=== PATIENT | female | born 1980 ===

== ENCOUNTER 2021-06-27 10:33 | Day surgery (SDC) | payer BC, OTHER ==
[2021-06-25 15:33] VITALS: BMI 26.2
[~2021-06-27 10:33] MED LIST: DEXAMETHASONE SOD PHOSPHATE 4 MG/ML 1 ML VIAL IV ONE; HYDROmorphone 0.5 MG/0.5 ML SYRINGE IVP PRN; LACTATED RINGERS 1,000 ML IV SCH; ONDANSETRON 4 MG/2 ML VIAL IVP ONE; Pre Op ABX Message 1 EACH MISC MISCELLANE ONE
--- NOTE | 2021-06-27 10:51 | P.HPOB ---
History of Present Illness H&P Date: 06/27/21 Chief Complaint: Pelvic pain: Hydrosalpinx Monica is a 41-year-old female who is been having pelvic pain. She initially thought that it might be her physical scopes were causing her pain and initially wanted her fallopian tubes includes removed. Ultrasound revealed a suspected hydrosalpinx and we are scheduled for a diagnostic laparoscopy and either drainage or removal of the hydrosalpinx. Initially she had wondered about removing both of her tubes. We have had multiple discussions including 1 with her on whether we should do this or not. She had initially wanted to have a tubal reversal and explained that I didn't do those that we would have to have her referred out to a specialist to does them and that if that was the case I didn't think she should have surgery with me as I could actually end of damaging the tubes were then what would potentially be repairable. At this time I believe she would like both of her tubes removed but we'll verify this in preop with nurse present to decide exactly what were going to do. If she wishes only to have the hydrosalpinx drained the now will be the plan if however she decides remove both her fallopian tubes because she is afraid that the pain is from this then we'll make every effort to follow her wishes. Risks/benefits/alternatives to surgery were discussed with patient in detail and did include but were not limited to bleeding and infection, damage to bladder or bowel past surgeries nerve injuries potentially ureteral injuries but eventually further surgery. On physical exam vital signs stable afebrile. Heart regular, lungs clear, extremities are without pain. Abdomen soft and bowel sounds are noted. Pelvic exam is otherwise unremarkable. She does have some tenderness but otherwise her pelvis is normal. Hydrosalpinx is not palpated Past Medical History Past Medical History: Asthma, Fibromyalgia, Hearing Disorder / Deafness Additional Past Medical History / Comment(s): Hard of hearing, right ear worse than left. History of Any Multi-Drug Resistant Organisms: None Reported Past Surgical History: Ear Surgery, Tubal Ligation Past Anesthesia/Blood Transfusion Reactions: Motion Sickness, Postoperative Nausea & Vomiting (PONV) Additional Past Anesthesia/Blood Transfusion Reaction / Comment(s): Slow to wake up. Past Psychological History: Anxiety Smoking Status: Former smoker, Vaper Past Alcohol Use History: None Reported Additional Past Alcohol Use History / Comment(s): Quit smoking 1 yr ago, now vapes occasionally. Past Drug Use History: None Reported - Past Family History Mother Family Medical History: Unable to Obtain Medications and Allergies Home Medications Medication Instructions Recorded Confirmed Type DULoxetine HCL [Cymbalta] 50 mg PO HS 06/25/21 06/25/21 History Pregabalin [Lyrica] 50 mg PO BID 06/25/21 06/25/21 History Allergies Allergy/AdvReac Type Severity Reaction Status Date / Time adhesive tape Allergy Rash/Hives Verified 06/25/21 15:35 amoxicillin AdvReac Yeast Verified 06/25/21 15:34 Infection Exam Osteopathic Statement: *. No significant issues noted on an osteopathic structural exam other than those noted in the History and Physical/Consult.
[2021-06-27] MEDS ORDERED: LACTATED RINGERS 1,000 ML IV ONE (11:24)
[2021-06-27] MEDS ORDERED: SCOPOLAMINE 1.5MG/72HR PATCH TRANSDERM ONE (11:25)
[2021-06-27] MEDS ORDERED: LIDOCAINE 1% INJ 10MG/ML (20 ML MDV) ONE (13:26)
[2021-06-27] MEDS ORDERED: fentaNYL (PF) 50 MCG/ML 2 ML AMP ONE (13:26)
[2021-06-27] MEDS ORDERED: KETOROLAC 15 MG/ML 1 ML VIAL ONE (13:26)
[2021-06-27] MEDS ORDERED: PROPOFOL 10 MG/ML 20 ML VIAL IV ONE (13:26)
[2021-06-27] MEDS ORDERED: NEOSTIGMINE 1 MG/ML 10 ML VIAL ONE (13:26)
[2021-06-27] MEDS ORDERED: GLYCOPYRROLATE 0.2 MG/ML 2 ML VIAL ONE (13:26)
[2021-06-27] MEDS ORDERED: SUCCINYLCHOLINE CHLORIDE 100 MG/5 ML SYR IV ONE (13:26)
[2021-06-27] MEDS ORDERED: ROCURONIUM 10 MG/ML (5 ML VIAL) IV ONE (13:26)
[2021-06-27] MEDS ORDERED: MIDAZOLAM 2 MG/2 ML VIAL ONE (13:26)
[2021-06-27] MEDS ORDERED: BUPIVACAINE (PF) 0.5% 30 ML VIAL SQ ONE (14:06)
--- NOTE | 2021-06-27 14:28 | P.OP ---
Date of Procedure: 06/27/21 Preoperative Diagnosis: Pelvic pain and hydrosalpinx Postoperative Diagnosis: Same Procedure(s) Performed: Diagnostic laparoscopy with bilateral salpingectomy Anesthesia: SHAILESH Surgeon: Guillermo Perdomo Estimated Blood Loss (ml): 5 IV fluids (ml): 400 Urine output (ml): 100 Pathology: other (Bilateral fallopian tubes) Condition: stable Disposition: same day Operative Findings: Right hydrosalpinx noted with minimal adhesions. Filshie clips are noted within the omentum but freely mobile Description of Procedure: Patient was taken to the operating suite where general anesthetic was found be adequate she was prepped and draped in normal sterile fashion and placed in the dorsal lithotomy position. Initially a speculum inserted in the vagina and Ivon posterior identified and grasped with an Allis clamp. Uterus was then sounded to 8 cm and cervix was dilated. Uterine manipulator was then inserted without difficulty and other instruments removed. Red rubber cath was then used to drain the bladder of urine. Gloves were changed and attention was turned to abdominal portion procedure where 2 mL of quarter percent Marcaine was injected periumbilically. Through this injected anesthetic a 5 mm skin incision was made and through this incision, under direct visualization, the camera was inserted. Once peritoneal placement was assured gas was allowed to fully insufflate the abdomen and patient was placed in steep Trendelenburg position. A second 5 mm skin incision was then made 3 cm above the pubic symphysis in the midline and then under direct visualized moving the camera to the suprapubic port the 10 mm skin incision was made and a port and sleeve were inserted again under direct visualization. Observations pelvis were noted. There was a hydrosalpinx was noted and was attached to the omentum Elysia were noted really just together within the omentum but the omentum piece was freely mobile and not attached to bowel or pelvic sidewall. Therefore ovary was evaluated in normal fallopian tube/hydrosalpinx was then elevated and using a LigaSure it was cauterized and transected. Once this was completed the left fallopian tube was also trans- resected and cauterized with the LigaSure and both of these were placed in a gallbladder bag and were removed from the operative field. Hemostasis is noted across all pedicles therefore instruments were removed gas allowed to expel from the abdomen. 5 deep breaths were provided during this process. 4-0 Vicryl using used to close incision subcuticularly and the incident was removed from the vagina. Sponge, lap, needle counts were all correct 2. Patient was then taken to the recovery room in stable and satisfactory condition. Plan - Discharge Summary Discharge Rx Participant: Yes New Discharge Prescriptions: New Ibuprofen [Motrin] 600 mg PO Q6HR PRN #30 tab PRN Reason: Pain oxyCODONE HCL/ACETAMINOPHEN [Percocet 5-325 mg] 1 tab PO Q4HR PRN 3 Days #18 tab PRN Reason: Pain No Action DULoxetine HCL [Cymbalta] 50 mg PO HS Pregabalin [Lyrica] 50 mg PO BID Discharge Medication List DULoxetine HCL [Cymbalta] 50 mg PO HS 06/25/21 [History] Pregabalin [Lyrica] 50 mg PO BID 06/25/21 [History] Ibuprofen [Motrin] 600 mg PO Q6HR PRN #30 tab 06/27/21 [Rx] oxyCODONE HCL/ACETAMINOPHEN [Percocet 5-325 mg] 1 tab PO Q4HR PRN 3 Days #18 tab 06/27/21 [Rx] Follow up Appointment(s)/Referral(s): Guillermo Perdomo DO [Doctor of Osteopathic Medicine] - 1 Week Patient Instructions/Handouts: *Surgery [facility] - Scopalamine Patch Instructions Discharge Disposition: HOME SELF-CARE
[2021-06-27 14:45] VITALS: TEMP 97.8
[2021-06-27 14:55] VITALS: RESP 16
[2021-06-27] MEDS ORDERED: ONDANSETRON 4 MG/2 ML VIAL ONE (15:22)
[2021-06-27] MEDS ORDERED: ONDANSETRON 4 MG/2 ML VIAL IVP ONE (15:23)
[2021-06-27] MEDS ORDERED: oxyCODONE-APAP 5-325MG 1 EACH TAB ONE (15:58)
[2021-06-27] MEDS ORDERED: oxyCODONE-APAP 5-325MG 1 EACH TAB PO ONE (16:00)
[2021-06-27 16:22] VITALS: BP 117/76; PULSE 61
== END 2021-06-27 16:41 | disposition home or self-care (01) ==
LOC: OR 10:33
PROVIDERS: ATTEND Obstetrics & Gynecology
DX: N70.11 Chronic salpingitis (principal); J45.909 Unspecified asthma, uncomplicated; M79.7 Fibromyalgia; H91.90 Unspecified hearing loss, unspecified ear; F41.9 Anxiety disorder, unspecified; F17.290 Nicotine dependence, other tobacco product, uncomplicated; Z98.51 Tubal ligation status; Z79.899 Other long term (current) drug therapy; Z88.0 Allergy status to penicillin; Z91.09 Other allergy status, other than to drugs and biological substances
CPT/HCPCS: 81025; 88305; 58661; J2250; J1100; J2710; J2405; J2001; J3010; J1885; J0330; J2704; J1170

== ENCOUNTER → 2021-09-03 | Outpatient (CLI) | payer BC, OTHER ==
[2021-09-03 21:24] LABS: African American GFR (CKD) 114.5 (60.0-200.0); Albumin 4.6 g/dL (3.8-4.9); Albumin/Globulin Ratio 1.71 (1.60-3.17); Anion Gap 13.7 mmol/L (10.00-18.00); BUN/Creat Ratio 15.13 Ratio (12.00-20.00); Blood Urea Nitrogen 11.5 mg/dL (9.0-27.0); Calcium 9.2 mg/dL (8.7-10.3); Globulin 2.7 g/dL (1.6-3.3); Magnesium 2.2 mg/dL (1.5-2.4); Non-African American GFR(CKD) 98.8 (60.0-200.0); Potassium 3.7 mmol/L (3.5-5.5); Total Bilirubin 0.4 mg/dL (0.30-1.20); Total Protein 7.3 g/dL (6.2-8.2)
== END | disposition home or self-care (01) ==
LOC: LABWHC1 12:09
PROVIDERS: ATTEND Internal Medicine
DX: G47.62 Sleep related leg cramps (principal)
CPT/HCPCS: 36415; 80053; 83735

== ENCOUNTER → 2021-10-03 | Outpatient (CLI) | payer BC, OTHER ==
[2021-10-03 14:59] LABS: Basophils # (A) 0.02 X 10*3/uL (0.00-0.10); Basophils % (A) 0.3 %; Eosinophils # (A) 0.07 X 10*3/uL (0.04-0.35); Eosinophils % (A) 0.9 %; HCT 42.2 % (37.2-46.3); HGB 13.4 g/dL (12.0-15.0); MCH 29.8 pg (27.0-32.0); MCHC 31.8 g/dL (32.0-37.0); Mean Platelet Volume 9.8 fL (9.5-12.2); Monocytes # (A) 0.56 X 10*3/uL (0.20-1.00); Monocytes % (A) 7.6 %; Neutrophils # (A) 5.03 X 10*3/uL (1.80-7.70); Neutrophils % (A) 67.9 %; Platelet Count 270 X 10*3/uL (140-440); RBC 4.49 X 10*6/uL (4.10-5.20); RDW 12.3 % (11.5-14.5)
[2021-10-03 16:20] LABS: African American GFR (CKD) 126.5 (60.0-200.0); Albumin 4.3 g/dL (3.8-4.9); Albumin/Globulin Ratio 1.65 (1.60-3.17); Anion Gap 13.5 mmol/L (10.00-18.00); BUN/Creat Ratio 16.71 Ratio (12.00-20.00); Blood Urea Nitrogen 11.7 mg/dL (9.0-27.0); Calcium 8.9 mg/dL (8.7-10.3); Carbon Dioxide 21.5 mmol/L (20.0-27.5); Globulin 2.6 g/dL (1.6-3.3); Non-African American GFR(CKD) 109.1 (60.0-200.0); Potassium 4.1 mmol/L (3.5-5.5); T4, Free (Free Thyroxine) 1.58 ng/dL (0.800-1.800); Total Bilirubin 0.3 mg/dL (0.30-1.20); Total Protein 6.9 g/dL (6.2-8.2)
== END | disposition home or self-care (01) ==
LOC: LABWHC1 08:42
PROVIDERS: ATTEND Nurse Practitioner Acute Care
DX: M35.3 Polymyalgia rheumatica (principal); R20.2 Paresthesia of skin; E55.9 Vitamin D deficiency, unspecified; E53.9 Vitamin B deficiency, unspecified; R42 Dizziness and giddiness; H53.8 Other visual disturbances; G43.909 Migraine, unspecified, not intractable, without status migrainosus
CPT/HCPCS: 36415; 80053; 82306; 82607; 84207; 84439; 84443; 84481; 85025

== ENCOUNTER 2021-10-05 18:54 | Emergency (ER) | payer BC, OTHER ==
[2021-10-05 18:57] VITALS: RESP 18; TEMP 98.2
[2021-10-05] MEDS ORDERED: KETOROLAC 15 MG/ML 1 ML VIAL IVP STA (19:10)
[2021-10-05] MEDS ORDERED: SODIUM CHLORIDE 0.9% 1,000 ML IV STA (19:10)
[2021-10-05] MEDS ORDERED: SODIUM CHLORIDE 0.9% 500 ML 500 ML IV STA (19:10)
--- NOTE | 2021-10-05 19:13 | ED ---
Abdominal Pain HPI - General Chief Complaint: Abdominal Pain Stated Complaint: Flank Pain Time Seen by Provider: 10/05/21 18:59 Source: patient, family, EMS, RN notes reviewed Mode of arrival: EMS Limitations: no limitations - History of Present Illness Initial Comments: 40-year-old female with a history of MS also history of tubal ligation past history of fibromyalgia and hypertension who states she had the onset yesterday of left-sided flank pain fairly constant in nature 910/10 in severity increases with movements and deep breathing. She denies any cough fevers chills she has had sweats with the pain. No dysuria no hematuria no history of kidney stones. Patient does states she feels bloated. No other complaints or modifying factors. MD Complaint: flank pain - Related Data Home Medications Medication Instructions Recorded Confirmed DULoxetine HCL [Cymbalta] 50 mg PO HS 06/25/21 06/25/21 Pregabalin [Lyrica] 50 mg PO BID 06/25/21 06/25/21 Previous Rx's Medication Instructions Recorded Ibuprofen [Motrin] 600 mg PO Q6HR PRN #30 tab 06/27/21 oxyCODONE HCL/ACETAMINOPHEN 1 tab PO Q4HR PRN 3 Days #18 tab 06/27/21 [Percocet 5-325 mg] Cephalexin [Keflex] 500 mg PO Q6HR 1 Days #40 cap 10/05/21 Fluconazole [Diflucan] 150 mg PO ONCE #1 tab 10/05/21 Ibuprofen 800 mg PO Q6HR PRN #20 tablet 10/05/21 Allergies Allergy/AdvReac Type Severity Reaction Status Date / Time adhesive tape Allergy Rash/Hives Verified 10/05/21 18:56 amoxicillin AdvReac Yeast Verified 10/05/21 18:56 Infection Review of Systems ROS Statement: Those systems with pertinent positive or pertinent negative responses have been documented in the HPI. ROS Other: All systems not noted in ROS Statement are negative. Past Medical History Past Medical History: Asthma, Fibromyalgia, Hearing Disorder / Deafness Additional Past Medical History / Comment(s): Hard of hearing, right ear worse than left. History of Any Multi-Drug Resistant Organisms: None Reported Past Surgical History: Ear Surgery, Tubal Ligation Past Anesthesia/Blood Transfusion Reactions: Motion Sickness, Postoperative Nausea & Vomiting (PONV) Additional Past Anesthesia/Blood Transfusion Reaction / Comment(s): Slow to wake up. Past Psychological History: Anxiety Smoking Status: Former smoker, Vaper Past Alcohol Use History: None Reported Past Drug Use History: None Reported - Past Family History Mother Family Medical History: Unable to Obtain General Exam - General Exam Comments Initial Comments: This is a well-developed well-nourished awake alert oriented 3 female Limitations: no limitations General appearance: alert, anxious, in distress Head exam: Present: atraumatic, normocephalic, normal inspection Eye exam: Present: normal appearance, PERRL, EOMI. Absent: scleral icterus, c onjunctival injection, periorbital swelling ENT exam: Present: normal exam, mucous membranes moist Neck exam: Present: normal inspection, full ROM, other. Absent: tenderness, meningismus, lymphadenopathy Respiratory exam: Present: normal lung sounds bilaterally. Absent: respiratory distress, wheezes, rales, rhonchi, stridor Cardiovascular Exam: Present: regular rate, normal rhythm, normal heart sounds. Absent: systolic murmur, diastolic murmur, rubs, gallop, clicks GI/Abdominal exam: Present: soft, tenderness (Left flank tenderness), normal bowel sounds. Absent: distended, guarding, rebound, rigid Extremities exam: Present: normal inspection, full ROM, normal capillary refill. Absent: tenderness, pedal edema, joint swelling, calf tenderness Back exam: Present: normal inspection, CVA tenderness (L) Neurological exam: Present: alert, oriented X3, CN II-XII intact Psychiatric exam: Present: normal affect, normal mood Skin exam: Present: warm, dry, intact, normal color. Absent: rash Course Vital Signs 10/05/21 18:56 Temperature 98.2 F Pulse Rate 108 H Respiratory 18 Rate Blood Pressure 124/81 O2 Sat by Pulse 98 Oximetry - Reevaluation(s) Reevaluation #1: 10/05/21 20:28 Patient states she did get some relief from the Toradol given she still has pain is 5/10 when she tries to move. Medical Decision Making - Medical Decision Making I did discuss the findings with the patient family patient does have evidence of urinary tract infection patient will be given IV antibiotics as well as Diflucan if she does have problems with antibiotics and yeast infections. This is what the amoxicillin is listed as a adverse reaction 4. She will be given prescriptions after IV medication she is in agreement with this. She is a follow-up with her doctor return when necessary - Lab Data Result diagrams: 10/05/21 19:27 10/05/21 19:27 Lab Results 10/05/21 10/05/21 10/05/21 Range/Units 19:27 19: 19: WBC 10.9 H (3.8-10.6) k/uL RBC 4.23 (3.80-5.40) m/uL Hgb 13.2 (11.4-16.0) gm/dL Hct 39.4 (34.0-46.0) % MCV 93.1 (80.0-100.0) fL MCH 31.3 (25.0-35.0) pg MCHC 33.6 (31.0-37.0) g/dL RDW 12.1 (11.5-15.5) % Plt Count 238 (150-450) k/uL MPV 6.8 Neutrophils % 78 % Lymphocytes % 14 % Monocytes % 6 % Eosinophils % 1 % Basophils % 0 % Neutrophils # 8.5 H (1.3-7.7) k/uL Lymphocytes # 1.6 (1.0-4.8) k/uL Monocytes # 0.6 (0-1.0) k/uL Eosinophils # 0.1 (0-0.7) k/uL Basophils # 0.0 (0-0.2) k/uL Sodium (137-145) mmol/L Potassium (3.5-5.1) mmol/L Chloride (98-107) mmol/L Carbon Dioxide (22-30) mmol/L Anion Gap mmol/L BUN (7-17) mg/dL Creatinine (0.52-1.04) mg/dL Est GFR (CKD-EPI)AfAm (>60 ml/min/1.73 sqM) Est GFR (CKD-EPI)NonAf (>60 ml/min/1.73 sqM) Glucose (74-99) mg/dL Calcium (8.4-10.2) mg/dL Total Bilirubin (0.2-1.3) mg/dL AST (14-36) U/L ALT (4-34) U/L Alkaline Phosphatase (38-126) U/L Total Protein (6.3-8.2) g/dL Albumin (3.5-5.0) g/dL Amylase (30-110) U/L Lipase (23-300) U/L Urine Color Light Yellow Urine Appearance Cloudy H (Clear) Urine pH 5.5 (5.0-8.0) Ur Specific [place] 1.006 (1.001-1.035) Urine Protein Negative (Negative) Urine Glucose (UA) Negative (Negative) Urine Ketones Negative (Negative) Urine Blood Large H (Negative) Urine Nitrite Positive H (Negative) Urine Bilirubin Negative (Negative) Urine Urobilinogen <2.0 (<2.0) mg/dL Ur Leukocyte Esterase Moderate H (Negative) Urine RBC 3 (0-5) /hpf Urine WBC 8 H (0-5) /hpf Ur Squamous Epith Cells 10 H (0-4) /hpf Amorphous Sediment Occasional H (None) /hpf Urine Bacteria Occasional H (None) /hpf Urine Mucus Rare H (None) /hpf Urine HCG, Qual Not Detected (Not Detectd) 10/05/21 Range/Units 19:27 WBC (3.8-10.6) k/uL RBC (3.80-5.40) m/uL Hgb (11.4-16.0) gm/dL Hct (34.0-46.0) % MCV (80.0-100.0) fL MCH (25.0-35.0) pg MCHC (31.0-37.0) g/dL RDW (11.5-15.5) % Plt Count (150-450) k/uL MPV Neutrophils % % Lymphocytes % % Monocytes % % Eosinophils % % Basophils % % Neutrophils # (1.3-7.7) k/uL Lymphocytes # (1.0-4.8) k/uL Monocytes # (0-1.0) k/uL Eosinophils # (0-0.7) k/uL Basophils # (0-0.2) k/uL Sodium 137 (137-145) mmol/L Potassium 4.0 (3.5-5.1) mmol/L Chloride 102 (98-107) mmol/L Carbon Dioxide 21 L (22-30) mmol/L Anion Gap 14 mmol/L BUN 19 H (7-17) mg/dL Creatinine 0.88 (0.52-1.04) mg/dL Est GFR (CKD-EPI)AfAm >90 (>60 ml/min/1.73 sqM) Est GFR (CKD-EPI)NonAf 84 (>60 ml/min/1.73 sqM) Glucose 86 (74-99) mg/dL Calcium 9.0 (8.4-10.2) mg/dL Total Bilirubin 0.7 (0.2-1.3) mg/dL AST 26 (14-36) U/L ALT 24 (4-34) U/L Alkaline Phosphatase 76 (38-126) U/L Total Protein 7.1 (6.3-8.2) g/dL Albumin 4.0 (3.5-5.0) g/dL Amylase 39 (30-110) U/L Lipase 49 (23-300) U/L Urine Color Urine Appearance (Clear) Urine pH (5.0-8.0) Ur Specific [place] (1.001-1.035) Urine Protein (Negative) Urine Glucose (UA) (Negative) Urine Ketones (Negative) Urine Blood (Negative) Urine Nitrite (Negative) Urine Bilirubin (Negative) Urine Urobilinogen (<2.0) mg/dL Ur Leukocyte Esterase (Negative) Urine RBC (0-5) /hpf Urine WBC (0-5) /hpf Ur Squamous Epith Cells (0-4) /hpf Amorphous Sediment (None) /hpf Urine Bacteria (None) /hpf Urine Mucus (None) /hpf Urine HCG, Qual (Not Detectd) - Radiology Data Radiology results: report reviewed (Imaging reviewed no acute findings), image reviewed Disposition Clinical Impression: Left flank pain, Urinary tract infection Disposition: HOME SELF-CARE Condition: Good Instructions (If sedation given, give patient instructions): Urinary Tract Infection in Women (ED), Flank Pain (ED), Renal Colic (ED) Prescriptions: Fluconazole [Diflucan] 150 mg PO ONCE #1 tab Ibuprofen 800 mg PO Q6HR PRN #20 tablet PRN Reason: Pain Cephalexin [Keflex] 500 mg PO Q6HR 1 Days #40 cap Is patient prescribed a controlled substance at d/c from ED?: No Referrals: Channing Bright MD [Primary Care Provider] - 1-2 days
[2021-10-05 19:41] LABS: Basophils % (A) 0 %; Eosinophils # (A) 0.1 k/uL (0-0.7); Eosinophils % (A) 1 %; HCT 39.4 % (34.0-46.0); HGB 13.2 gm/dL (11.4-16.0); Lymphocytes # (A) 1.6 k/uL (1.0-4.8); Lymphocytes % (A) 14 %; MCH 31.3 pg (25.0-35.0); MCHC 33.6 g/dL (31.0-37.0); MCV 93.1 fL (80.0-100.0); Mean Platelet Volume 6.8; Monocytes # (A) 0.6 k/uL (0-1.0); Monocytes % (A) 6 %; Neutrophils # (A) 8.5 k/uL (1.3-7.7); Neutrophils % (A) 78 %; Platelet Count 238 k/uL (150-450); RBC 4.23 m/uL (3.80-5.40); RDW 12.1 % (11.5-15.5); WBC 10.9 k/uL (3.8-10.6)
[2021-10-05 19:54] LABS: Amorphous Sediment,Urine Occasional /hpf; Appearance,Urine Cloudy (Clear); Bacteria,Urine Occasional /hpf; Bilirubin,Urine Negative (Negative); Blood,Urine Large (Negative); Color,Urine Light Yellow; Glucose,Urine (UA) Negative (Negative); Ketones,Urine Negative (Negative); Leukocyte Esterase,Urine Moderate (Negative); Mucus,Urine Rare /hpf; Nitrite,Urine Positive (Negative); PH, Urine 5.5 (5.0-8.0); Protein,Urine Negative (Negative); RBC,Urine 3 /hpf (0-5); Specific Gravity,Urine 1.006 (1.001-1.035); Squamous Epithelial Cell,Urine 10 /hpf (0-4); Urobilinogen,Urine <2.0 mg/dL (<2.0); WBC,Urine 8 /hpf (0-5)
[2021-10-05 19:56] LABS: ALT 24 U/L (4-34); AST 26 U/L (14-36); African American GFR (CKD) >90 (>60 ml/min/1.73 sqM); Alkaline Phosphatase 76 U/L (38-126); Amylase 39 U/L (30-110); Anion Gap 14 mmol/L; Blood Urea Nitrogen 19 mg/dL (7-17); Carbon Dioxide 21 mmol/L (22-30); Chloride 102 mmol/L (98-107); Glucose 86 mg/dL (74-99); Lipase 49 U/L (23-300); Non-African American GFR(CKD) 84 (>60 ml/min/1.73 sqM); Sodium 137 mmol/L (137-145); Total Bilirubin 0.7 mg/dL (0.2-1.3); Total Protein 7.1 g/dL (6.3-8.2)
--- NOTE | 2021-10-05 20:07 | XR ---
EXAMINATION TYPE: XR KUB DATE OF EXAM: 10/05/2021 COMPARISON: 02/24/2011 HISTORY: Abdominal pain TECHNIQUE: 2 views upright FINDINGS: There is no sign of intestinal obstruction or pneumoperitoneum. Fecal pattern is normal. Th ere are clips in the pelvis. There are no calcifications over the kidneys. Lung bases are clear. IMPRESSION: Nonacute abdomen. No adverse change. There is clearing of the large bowel fluid levels co mpared to old exam.
[2021-10-05] MEDS ORDERED: cefTRIAXone IN SWFI 1,000 MG/10 ML SYRINGE IVP STA (20:26)
[2021-10-05] MEDS ORDERED: FLUCONAZOLE 150 MG TAB PO STA (20:26)
[2021-10-05] MEDS ORDERED: HYDROmorphone 1 MG/ML 1 ML SYRINGE IVP STA (20:27)
[2021-10-05 21:07] VITALS: BP 134/85; PULSE 107
== END 2021-10-05 21:07 | disposition home or self-care (01) ==
LOC: EC 18:54
DX: N39.0 Urinary tract infection, site not specified (principal); Z91.048 Other nonmedicinal substance allergy status; Z88.0 Allergy status to penicillin; J45.909 Unspecified asthma, uncomplicated; H91.93 Unspecified hearing loss, bilateral; F17.200 Nicotine dependence, unspecified, uncomplicated
CPT/HCPCS: 36415; 80053; 82150; 83690; 85025; 81001; 81025; 74018; 99284; 96374; 96375; J0696; J1170; J1885

== ENCOUNTER 2021-11-19 20:06 | Emergency (ER) | payer BC, OTHER ==
--- NOTE | 2021-11-19 20:33 | ED ---
General Adult HPI <Karl Waterman - Last Filed: 11/20/21 00:03> <TimPorfirio César - Last Filed: 11/21/21 12:06> - General Stated complaint: Dizziness Time Seen by Provider: 11/19/21 20:09 - History of Present Illness Initial comments: Dictation was produced using [employer] dictation software. please excuse any grammatical, word or spelling errors. Chief Complaint: Patient is 41-year-old female past medical history of fibro myalgia, asthma and hearing disorder since to the ER for lethargy and altered mental status History of Present Illness: 41-year-old female patient revised history of present illness. According to nurse will receive report from EMS EMS was called for lethargy altered mental status. Patient is sleepy at the bedside however she is arousable. She provides rest of the HPI. Patient states that she was having trouble sleeping at home. She states she was tossing and turning. She called EMS because she is having lower leg pain. Patient has history of restless leg syndrome. Patient denies any pain complaints otherwise. No shortness breath nausea vomiting. The ROS documented in this emergency department record has been reviewed and confirmed by me. Those systems with pertinent positive or negative responses have been documented in the HPI. All other systems are other negative and/or n oncontributory. PHYSICAL EXAM: General Impression: Alert and oriented x3, not in acute distress, sleepy but arousable HEENT: Normocephalic atraumatic, extra-ocular movements intact, pupils equal and reactive to light bilaterally, mucous membranes moist. Cardiovascular: Heart regular rate and rhythm Chest: Able to complete full sentences, no retractions, no tachypnea Abdomen: abdomen soft, non-tender, non-distended, no organomegaly Musculoskeletal: Pulses present and equal in all extremities, no peripheral edema Motor: no focal deficits noted Neurological: CN II-XII grossly intact, no focal motor or sensory deficits noted Skin: Intact with no visualized rashes Psych: Normal affect and mood ED course: 41-year-old female presents via EMS. According to EMS chief complaint was for lethargy and altered mental status. Patient reports that she is here for a lateral lower extremity pain. Signs upon arrival are within acceptable limits. She is sleepy at the bedside however she is arousable and is coherent and alert and oriented 4. Patient care sent out to Dr. Waterman pending sobriety. Patient reevaluated bedside at 10:50 PM found to be in stable medical condition. Patient sleeping comfortably. She is not showing signs of respiratory or pain distress. Vital signs are stable. Maps report was obtained. Patient has a overdose risk or of 310. Patient has been prescribed lorazepam, pregabalin, phentermine, Percocet. Patient is sleepy but arousable. Suspect patient did benzodiazepines prior to coming to the emergency department. She does not have any pinpoint pupils. She does not have a low respiratory rate. Highly doubt opiate overdose. Laboratory evaluation obtained. CBC, metabolic panel, tox labs are negative. EKG interpretation: Ventricular rate 75, sinus rhythm,. 156, QS 91, QTC 428. No IN prolongation, no QTC prolongation, no ST or T-wave changes noted. EKG compared to 10/23/2021 showing no changes. Overall, this EKG is unremarkable (Porfirio Dumont) - Related Data Home Medications Medication Instructions Recorded Confirmed DULoxetine HCL [Cymbalta] 20 mg PO DAILY 06/25/21 11/19/21 Pregabalin [Lyrica] 50 mg PO BID@0600,2200 06/25/21 11/19/21 Diclofenac Sodium [Voltaren] 50 mg PO BID-W/MEALS 11/19/21 11/19/21 Ergocalciferol (Vitamin D2) 1,250 mcg PO TU 11/19/21 11/19/21 [Drisdol (50,000 Iu)] Ondansetron Odt [Zofran Odt] 4 mg PO BID PRN 11/19/21 11/19/21 Rimegepant Sulfate [Nurtec Odt] 75 mg PO DAILY PRN 11/19/21 11/19/21 lisinopriL [Zestril] 5 mg PO DAILY 11/19/21 11/19/21 rOPINIRole HCL [Requip] 1 mg PO HS 11/19/21 11/19/21 tiZANidine HCL 4 mg PO TID@0600,1200,2200 11/19/21 11/19/21 Allergies Allergy/AdvReac Type Severity Reaction Status Date / Time adhesive tape Allergy Rash/Hives Verified 11/19/21 21:29 amoxicillin AdvReac Yeast Verified 11/19/21 21:29 Infection Review of Systems ROS Other: All systems not noted in ROS Statement are negative. <Karl Waterman - Last Filed: 11/20/21 00:03> ROS Other: All systems not noted in ROS Statement are negative. <Porfirio Dumont - Last Filed: 11/21/21 12:06> ROS Statement: Those systems with pertinent positive or pertinent negative responses have been documented in the HPI. Past Medical History Past Medical History: Asthma, Fibromyalgia, Hearing Disorder / Deafness Additional Past Medical History / Comment(s): Hard of hearing, right ear worse than left. History of Any Multi-Drug Resistant Organisms: None Reported Past Surgical History: Ear Surgery, Tubal Ligation Past Anesthesia/Blood Transfusion Reactions: Motion Sickness, Postoperative Nausea & Vomiting (PONV) Additional Past Anesthesia/Blood Transfusion Reaction / Comment(s): Slow to wake up. Past Psychological History: Anxiety Smoking Status: Former smoker, Vaper Past Alcohol Use History: None Reported Past Drug Use History: None Reported - Past Family History Mother Family Medical History: Unable to Obtain <Porfirio Dumont - Last Filed: 11/21/21 12:06> Course Vital Signs 11/19/21 20:35 Temperature 97.6 F Pulse Rate 83 Respiratory 18 Rate Blood Pressure 91/58 O2 Sat by Pulse 97 Oximetry Medical Decision Making - Lab Data Result diagrams: 11/19/21 21:56 11/19/21 21:56 <Karl Waterman - Last Filed: 11/20/21 00:03> - Lab Data Result diagrams: 11/19/21 21:56 11/19/21 21:56 <Porfirio Dumont - Last Filed: 11/21/21 12:06> - Lab Data Lab Results 11/19/21 11/19/21 Range/Units 21:56 21:56 WBC 13.2 H (3.8-10.6) k/uL RBC 4.05 (3.80-5.40) m/uL Hgb 13.0 (11.4-16.0) gm/dL Hct 38.0 (34.0-46.0) % MCV 93.8 (80.0-100.0) fL MCH 32.2 (25.0-35.0) pg MCHC 34.3 (31.0-37.0) g/dL RDW 13.2 (11.5-15.5) % Plt Count 277 (150-450) k/uL MPV 7.0 Neutrophils % 82 % Lymphocytes % 12 % Monocytes % 4 % Eosinophils % 1 % Basophils % 0 % Neutrophils # 10.8 H (1.3-7.7) k/uL Lymphocytes # 1.6 (1.0-4.8) k/uL Monocytes # 0.6 (0-1.0) k/uL Eosinophils # 0.1 (0-0.7) k/uL Basophils # 0.0 (0-0.2) k/uL Sodium 134 L (137-145) mmol/L Potassium 3.9 (3.5-5.1) mmol/L Chloride 105 (98-107) mmol/L Carbon Dioxide 21 L (22-30) mmol/L Anion Gap 8 mmol/L BUN 12 (7-17) mg/dL Creatinine 0.86 (0.52-1.04) mg/dL Est GFR (CKD-EPI)AfAm >90 (>60 ml/min/1.73 sqM) Est GFR (CKD-EPI)NonAf 86 (>60 ml/min/1.73 sqM) Glucose 117 H (74-99) mg/dL Calcium 8.6 (8.4-10.2) mg/dL Salicylates <1.0 mg/dL Acetaminophen <10.0 ug/mL Serum Alcohol <10 mg/dL Disposition Is patient prescribed a controlled substance at d/c from ED?: No <Karl Watreman - Last Filed: 11/20/21 00:03> <Porfirio Dumont - Last Filed: 11/21/21 12:06> Clinical Impression: Medication side effects Disposition: HOME SELF-CARE Condition: Good Instructions (If sedation given, give patient instructions): Dizziness (ED) Referrals: Channing Bright MD [Primary Care Provider] - 1-2 days
[2021-11-19 20:42] VITALS: BP 91/58; PULSE 83; RESP 18; TEMP 97.6
[2021-11-19 22:22] LABS: Basophils % (A) 0 %; Eosinophils # (A) 0.1 k/uL (0-0.7); Eosinophils % (A) 1 %; Lymphocytes # (A) 1.6 k/uL (1.0-4.8); Lymphocytes % (A) 12 %; MCH 32.2 pg (25.0-35.0); MCHC 34.3 g/dL (31.0-37.0); MCV 93.8 fL (80.0-100.0); Monocytes # (A) 0.6 k/uL (0-1.0); Monocytes % (A) 4 %; Neutrophils # (A) 10.8 k/uL (1.3-7.7); Neutrophils % (A) 82 %; Platelet Count 277 k/uL (150-450); RBC 4.05 m/uL (3.80-5.40); RDW 13.2 % (11.5-15.5); WBC 13.2 k/uL (3.8-10.6)
[2021-11-19 22:51] LABS: Acetaminophen <10.0 ug/mL; African American GFR (CKD) >90 (>60 ml/min/1.73 sqM); Alcohol <10 mg/dL; Anion Gap 8 mmol/L; Blood Urea Nitrogen 12 mg/dL (7-17); Calcium 8.6 mg/dL (8.4-10.2); Carbon Dioxide 21 mmol/L (22-30); Chloride 105 mmol/L (98-107); Glucose 117 mg/dL (74-99); Non-African American GFR(CKD) 86 (>60 ml/min/1.73 sqM); Potassium 3.9 mmol/L (3.5-5.1); Salicylate <1.0 mg/dL; Sodium 134 mmol/L (137-145)
== END 2021-11-20 00:26 | disposition home or self-care (01) ==
LOC: EC 20:06
DX: T88.7XXA Unspecified adverse effect of drug or medicament, initial encounter (principal); Z87.891 Personal history of nicotine dependence; Z88.0 Allergy status to penicillin; Z91.048 Other nonmedicinal substance allergy status
CPT/HCPCS: 36415; 80048; 80143; 80179; 80320; 85025; 93005; 99285

== ENCOUNTER → 2021-11-19 | Outpatient (CLI) | payer BC, OTHER ==
[2021-11-19 18:30] LABS: Total Protein,CSF 48 mg/dL (12-60)
[2021-11-19 21:22] LABS: Appearance,CSF Clear; CSF Tube Number 4; CSF Tube Volume 3; Red Blood Cell,CSF 0 u/L (0-10)
[2021-11-19 21:23] LABS: Nucleated Cells, CSF 0 u/L (0-5)
== END | disposition home or self-care (01) ==
LOC: LABWHC1 08:24
PROVIDERS: ATTEND Nurse Practitioner Acute Care
DX: G35 Multiple sclerosis (principal); R42 Dizziness and giddiness
CPT/HCPCS: 36415; 82040; 82042; 82784; 83916; 84157; 87801; 89050

== ENCOUNTER → 2022-04-23 | Outpatient (CLI) | payer OTHER ==
--- NOTE | 2022-04-24 08:06 | NM ---
EXAMINATION TYPE: NM DatScan Brain SPECT DATE OF EXAM: 04/23/2022 COMPARISON: No CT or MRI correlation available HISTORY: 42-year-old female R2 5.8, bradykinesia. Frequent falls. TECHNIQUE: 10 drops of Lugol's solution was administered 1 hour prior to injection as a thyroid bloc mere agent. After the administration of 4.63 mCi I-123 Ioflupane DaTscan. Images obtained 3 hours p ost injection. SPECT images of the brain were acquired with axial and coronal reconstructions. FINDINGS: There is normal background activity. Satisfactory, symmetric activity in the bilateral corpus striata . IMPRESSION: This normal appearance is against a diagnosis of idiopathic Parkinson's disease or a parkinsonian syn drome. It is seen in healthy individuals and also patients with essential tremor, drug-induced shannan sonism, and vascular psuedo-parkinsonism.
== END | disposition home or self-care (01) ==
LOC: RADNMMAIN 10:52
PROVIDERS: ATTEND Psychiatry & Neurology Neurology
DX: R25.8 Other abnormal involuntary movements (principal); R29.6 Repeated falls
CPT/HCPCS: 78803; A9584